=== PATIENT | male | born 1990 | race Caucasian/White ===

== ENCOUNTER 2016-12-03 00:47 | Inpatient (IN) | payer MEDICAID, OTHER ==
--- NOTE | 2016-12-03 01:06 | ED ---
General Adult HPI - General Source: patient, RN notes reviewed, old records reviewed Mode of arrival: ambulatory Limitations: no limitations <Ghassan Dwyer - Last Filed: 12/03/16 01:05> <Shaw Colon - Last Filed: 12/03/16 08:53> - General Chief complaint: Psychiatric Symptoms Stated complaint: Mental Health Time Seen by Provider: 12/03/16 00:59 - History of Present Illness Initial comments: This is a 26-year-old male the ER for eversion of psychiatric disease. Patient has positive suicidal thoughts (Ghassan Dwyer) - Related Data Home Medications Medication Instructions Recorded Confirmed FLUoxetine HCL [PROzac] 20 mg PO DAILY 12/03/16 12/03/16 Allergies Allergy/AdvReac Type Severity Reaction Status Date / Time shellfish derived Allergy Anaphylaxis Verified 12/03/16 08:30 Review of Systems ROS Other: All systems not noted in ROS Statement are negative. <Ghassan Dwyer - Last Filed: 12/03/16 01:05> ROS Other: All systems not noted in ROS Statement are negative. <Shaw Cooln - Last Filed: 12/03/16 08:53> ROS Statement: Those systems with pertinent positive or pertinent negative responses have been documented in the HPI. Past Medical History Past Medical History: No Reported History History of Any Multi-Drug Resistant Organisms: None Reported Past Surgical History: No Surgical Hx Reported Past Psychological History: Depression Smoking Status: Current every day smoker Past Alcohol Use History: Occasional Past Drug Use History: Heroin <Ghassan Dwyer - Last Filed: 12/03/16 01:05> General Exam Limitations: no limitations General appearance: alert, in no apparent distress Head exam: Present: atraumatic, normocephalic, normal inspection Eye exam: Present: normal appearance, PERRL, EOMI. Absent: scleral icterus, conjunctival injection, periorbital swelling ENT exam: Present: normal exam, mucous membranes moist Neck exam: Present: normal inspection. Absent: tenderness, meningismus, lymphadenopathy Respiratory exam: Present: normal lung sounds bilaterally. Absent: respiratory distress, wheezes, rales, rhonchi, stridor Cardiovascular Exam: Present: regular rate, normal rhythm, normal heart sounds. Absent: systolic murmur, diastolic murmur, rubs, gallop, clicks GI/Abdominal exam: Present: soft, normal bowel sounds. Absent: distended, tenderness, guarding, rebound, rigid Extremities exam: Present: normal inspection, full ROM, normal capillary refill. Absent: tenderness, pedal edema, joint swelling, calf tenderness Back exam: Present: normal inspection Neurological exam: Present: alert, oriented X3, CN II-XII intact Psychiatric exam: Present: normal affect, normal mood Skin exam: Present: warm, dry, intact, normal color. Absent: rash <Ghassan Dwyer - Last Filed: 12/03/16 01:05> Medical Decision Making <Ghassan Dwyer - Last Filed: 12/03/16 01:05> <Shaw Colon - Last Filed: 12/03/16 08:53> - Medical Decision Making Patient was seen by mental health services, who will admit. (Shaw Colon) - Lab Data Lab Results 12/03/16 Range/Units 06:44 Urine Opiates Screen Not Detected (NotDetected) Ur Oxycodone Screen Not Detected (NotDetected) Urine Methadone Screen Not Detected (NotDetected) Ur Propoxyphene Screen Not Detected (NotDetected) Ur Barbiturates Screen Not Detected (NotDetected) U Tricyclic Antidepress Not Detected (NotDetected) Ur Phencyclidine Scrn Not Detected (NotDetected) Ur Amphetamines Screen Not Detected (NotDetected) U Methamphetamines Scrn Not Detected (NotDetected) U Benzodiazepines Scrn Not Detected (NotDetected) Urine Cocaine Screen Not Detected (NotDetected) U Marijuana (THC) Screen Not Detected (NotDetected) Disposition <Ghassan Dwyer - Last Filed: 12/03/16 01:05> <Shaw Colon - Last Filed: 12/03/16 08:53> Clinical Impression: Depression, Suicidal ideation Disposition: TRANSFER TO PSYCH HOSP/UNIT
[2016-12-03] MEDS ORDERED: LORazepam 2 MG/ML SYRINGE IM STA (10:28)
[2016-12-03] MEDS ORDERED: MAGNESIUM HYDROXIDE 2,400 MG/10 ML CUP PO PRN (13:42)
[2016-12-03] MEDS ORDERED: MAG HYDROX/AL HYDROX/SIMETH 30 ML CUP PO PRN (13:42)
[2016-12-03] MEDS ORDERED: ZIPRASIDONE 20 MG VIAL IM PRN (13:42)
[2016-12-03] MEDS ORDERED: ACETAMINOPHEN TAB 325 MG TAB PO PRN (13:42)
[2016-12-03 14:13] VITALS: BMI 19.1
[2016-12-03] MEDS: LORazepam 1 MG TAB PO PRN ×2 (14:13→19:38)
[2016-12-03] MEDS: NICOTINE 21MG/24HR PATCH TRANSDERM SCH (14:13)
[2016-12-04] MEDS: NICOTINE 21MG/24HR PATCH TRANSDERM SCH (08:46)
[2016-12-04] MEDS: LORazepam 1 MG TAB PO PRN ×2 (08:46→14:49)
[2016-12-04 09:38] LABS: Basophils % (A) 0 %; Eosinophils # (A) 0.2 k/uL (0-0.7); Eosinophils % (A) 3 %; HCT 52.5 % (39.0-53.0); HDW 2.57; HGB 16.9 gm/dL (13.0-17.5); Luc # (Auto) 0.19; Luc % (Auto) 3; Lymphocytes # (A) 1.6 k/uL (1.0-4.8); Lymphocytes % (A) 24 %; MCH 30.3 pg (25.0-35.0); MCHC 32.1 g/dL (31.0-37.0); MCV 94.4 fL (80.0-100.0); Mean Platelet Volume 7.6; Monocytes # (A) 0.5 k/uL (0-1.0); Monocytes % (A) 8 %; Neutrophils # (A) 4.2 k/uL (1.3-7.7); Neutrophils % (A) 63 %; RBC 5.56 m/uL (4.30-5.90); RDW 14.7 % (11.5-15.5); WBC 6.8 k/uL (3.8-10.6); WBC (Perox) 6.73
[2016-12-04 09:51] LABS: ALT 39 U/L (21-72); AST 38 U/L (17-59); Alkaline Phosphatase 69 U/L (38-126); Anion Gap 13 mmol/L; Blood Urea Nitrogen 10 mg/dL (9-20); Calcium 10.1 mg/dL (8.4-10.2); Carbon Dioxide 26 mmol/L (22-30); Chloride 102 mmol/L (98-107); Glucose 130 mg/dL (74-99); Non-African American GFR(MDRD) >60 (>60 ml/min/1.73 sqM); Potassium 3.9 mmol/L (3.5-5.1); Sodium 141 mmol/L (137-145); Total Bilirubin 2.4 mg/dL (0.2-1.3)
[2016-12-04] MEDS ORDERED: ALBUTEROL INHALER 60 PUFF/8 GM INHALER INHALATION PRN (09:55)
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
[2016-12-04] MEDS: DIAZEPAM 5 MG TAB PO SCH ×3 (10:15→20:56)
[2016-12-04] MEDS: FLUoxetine HCL 20 MG CAP PO SCH (10:15)
[2016-12-04] MEDS: GABAPENTIN 300 MG CAP PO SCH ×3 (10:15→20:56)
--- NOTE | 2016-12-04 15:53 | P.CONS ---
History of Present Illness - Reason for Consult Consult date: 12/04/16 - Chief Complaint Suicidal Ideation - History of Present Illness This is a pleasant 26-year-old gentleman with no current PCP, he has underlying history of chemical dependency, depression, insomnia, chronic alcoholism and panic attacks admitted to the hospital secondary to increasing despondency and suicidal thoughts. 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 No physical pain, no skin injuries currently. Review of Systems Constitutional: Reports as per HPI, Denies anorexia, Denies chills, Denies chronic headaches, Denies chronic pain, Denies daytime sleepiness, Denies fatigue, Denies fever, Denies lethargy, Denies malaise, Denies night sweats, Denies poor appetite, Denies sweats, Denies weakness, Denies weight gain, Denies weight loss Ears, nose, mouth and throat: Reports as per HPI, Denies ant. neck pain, Denies bleeding gums, Denies dental pain, Denies dysphagia, Denies epistaxis, Denies headache, Denies hoarseness, Denies mouth pain, Denies nasal congestion, Denies nasal discharge, Denies neck fullness/pressure, Denies neck lump, Denies nose pain, Denies odynophagia, Denies post-nasal drip, Denies sinus pain, Denies sinus pressure, Denies swelling in mouth, Denies swelling in throat, Denies sore throat, Denies vertigo, Denies voice changes Cardiovascular: Reports as per HPI, Denies chest pain, Denies claudication, Denies decreased exercise tolerance, Denies dyspnea on exertion, Denies edema, Denies high blood pressure, Denies irregular heart beat, Denies leg edema, Denies lightheadedness, Denies orthopnea, Denies palpitations, Denies paroxysmal nocturnal dyspnea, Denies phlebitis, Denies rapid heart beat, Denies shortness of breath, Denies syncope Respiratory: Reports as per HPI, Denies congestion, Denies cough, Denies cough with sputum, Denies dyspnea, Denies excessive sputum, Denies hemoptysis, Denies home oxygen, Denies pain, Denies pain on inspiration, Denies pleurisy, Denies respiratory infections, Denies sleep apnea, Denies snoring, Denies wheezing Gastrointestinal: Reports as per HPI, Denies abdominal pain, Denies belching, Denies bloating, Denies BRBPR, Denies change in bowel habits, Denies coffee ground emesis, Denies constipation, Denies diarrhea, Denies dyspepsia, Denies early satiety, Denies excessive gas, Denies heartburn, Denies hematemesis, Denies hematochezia, Denies indigestion, Denies jaundice, Denies lactose intolerance, Denies loss of appetite, Denies melena, Denies nausea, Denies vomiting Genitourinary: Reports as per HPI, Denies decreased libido, Denies difficulties fathering child, Denies discharge, Denies dysuria, Denies erectile dysfunction, Denies flank pain, Denies genital pain, Denies genital sores, Denies hematuria, Denies impotence, Denies incontinence, Denies kidney stones, Denies nocturia, Denies polyuria, Denies testicular lump, Denies testicular pain, Denies urinary frequency, Denies urinary hesitancy, Denies urinary retention Musculoskeletal: Reports as per HPI, Denies arm numbness/tingling, Denies atrophy, Denies fractures, Denies frequent falls, Denies gait dysfunction, Denies hot joints, Denies leg numbness/tingling, Denies limitation of motion, Denies loss of height, Denies low back pain, Denies morning stiffness, Denies muscle cramps, Denies muscle weakness, Denies myalgias, Denies neck pain, Denies neck stiffness, Denies prior amputations, Denies redness of joints, Denies shooting arm pain, Denies shooting leg pain Integumentary: Reports as per HPI, Denies acne, Denies boils, Denies brittle nails, Denies change in hair/nails, Denies color changes, Denies darkening of skin, Denies depigmentation, Denies dryness, Denies foot/leg ulcers, Denies growths, Denies hirsutism, Denies lesions, Denies onychomycosis, Denies pruritus , Denies rash, Denies sores, Denies striae, Denies unusual bruising, Denies wounds Neurological: Reports as per HPI, Denies aphasia, Denies ataxia, Denies balance difficulties, Denies burning pain, Denies change in mentation, Denies change in smell/taste, Denies change in speech, Denies confusion, Denies convulsions, Denies double vision, Denies gait dysfunction, Denies head injury, Denies headaches, Denies hearing difficulties, Denies lack of coordination, Denies loss of vision, Denies memory loss, Denies migraines, Denies motor disturbance, Denies numbness, Denies paralysis, Denies paresthesias, Denies seizures, Denies sensory deficit, Denies spasticity, Denies syncope, Denies tic, Denies tingling , Denies transient paralysis, Denies tremors, Denies vertigo, Denies weakness, Denies visual changes Psychiatric: Reports as per HPI, Reports anxiety, Reports anxiety attacks, Reports depression, Reports insomnia, Reports sleep disturbances, Denies anhedonia, Denies change in appetite, Denies change in libido, Denies change in sleep habits, Denies confusion, Denies difficulty concentrating, Denies disorientation, Denies hallucinations, Denies hopelessness, Denies hypersomnia, Denies irritability, Denies memory loss, Denies mood swings, Denies paranoia, Denies sadness/tearfulness, Denies suicidal ideation Endocrine: Reports as per HPI, Denies cold intolerance, Denies deepening of the voice, Denies excessive sweating, Denies excessive thirst, Denies fatigue, Denies flushing, Denies heat intolerance, Denies high blood sugars, Denies increase in ring/shoe/hat size, Denies low blood sugars, Denies nocturia, Denies palpitations, Denies polydipsia, Denies polyphagia, Denies polyuria, Denies proptosis, Denies recent glucocorticoid use, Denies thyroid mass, Denies weight change Hematologic/Lymphatic: Reports as per HPI Allergic/Immunologic: Reports as per HPI, Denies allergic rhinitis, Denies anaphylaxis, Denies angioedema, Denies gluten intolerance, Denies persistent infections, Denies seasonal allergies, Denies urticaria, Denies wheezing Past Medical History Past Medical History: Asthma, Liver Disease Additional Past Medical History / Comment(s): Hepatitis C History of Any Multi-Drug Resistant Organisms: None Reported Past Surgical History: No Surgical Hx Reported Past Anesthesia/Blood Transfusion Reactions: No Reported Reaction Past Psychological History: Depression Smoking Status: Current every day smoker Past Alcohol Use History: Daily, Heavy Additional Past Alcohol Use History / Comment(s): Pt. reports drinking a fifth a day since leaving [place] a week ago Past Drug Use History: Cocaine, Heroin, Marijuana, Opiates - Past Family History Mother Family Medical History: No Reported History Brother(s) Family Medical History: No Reported History Sister(s) Family Medical History: No Reported History Daughter(s) Family Medical History: No Reported History (2 daughters healthy no sons) Medications and Allergies Home Medications Medication Instructions Recorded Confirmed Type FLUoxetine HCL [PROzac] 20 mg PO DAILY 12/03/16 12/03/16 History Allergies Allergy/AdvReac Type Severity Reaction Status Date / Time shellfish derived Allergy Anaphylaxis Verified 12/03/16 08:30 haloperidol [From Haldol] AdvReac Unknown Verified 12/03/16 14:31 Physical Exam Vitals: Vital Signs Temp Pulse Resp BP Pulse Ox 12/04/16 06:35 97.5 F L 83 16 133/85 12/03/16 23:14 97.7 F 61 18 105/76 97 12/03/16 13:50 97.0 F L 128 H 20 141/90 - Constitutional General appearance: cooperative, no acute distress, thin - EENT Eyes: anicteric sclerae, EOMI, PERRLA, dentition normal, normal appearance ENT: hearing grossly normal, NA/AT, normal oropharynx - Neck Neck: no lymphadenopathy, normal ROM, no other, no rigidity, no stridor, no thyromegaly - Respiratory Respiratory: bilateral: CTA, negative: diminished, dullness, rales - Cardiovascular Rhythm: regular Heart sounds: normal: S1, S2 Abnormal Heart Sounds: no systolic murmur, no diastolic murmur, no rub, no S3 Gallop, no S4 Gallop, no click, no other - Gastrointestinal General gastrointestinal: normal bowel sounds, soft - Integumentary Integumentary: normal - Neurologic Neurologic: CNII-XII intact - Musculoskeletal Musculoskeletal: gait normal, strength equal bilaterally - Psychiatric Psychiatric: A&O x's 3, appropriate affect, intact judgment & insight Results CBC & Chem 7: 12/04/16 08:59 12/04/16 08:59 Labs: Abnormal Lab Results - Last 24 Hours (Table) 12/04/16 Range/Units 08:59 Glucose 130 H (74-99) mg/dL Total Bilirubin 2.4 H (0.2-1.3) mg/dL Laboratory Results WBC 6.8 k/uL (3.8-10.6) 12/04/16 08:59 RBC 5.56 m/uL (4.30-5.90) 12/04/16 08:59 Hgb 16.9 gm/dL (13.0-17.5) 12/04/16 08:59 Hct 52.5 % (39.0-53.0) 12/04/16 08:59 MCV 94.4 fL (80.0-100.0) 12/04/16 08:59 MCH 30.3 pg (25.0-35.0) 12/04/16 08:59 MCHC 32.1 g/dL (31.0-37.0) 12/04/16 08:59 RDW 14.7 % (11.5-15.5) 12/04/16 08:59 Plt Count 205 k/uL (150-450) 12/04/16 08:59 Neutrophils % 63 % 12/04/16 08:59 Lymphocytes % 24 % 12/04/16 08:59 Monocytes % 8 % 12/04/16 08:59 Eosinophils % 3 % 12/04/16 08:59 Basophils % 0 % 12/04/16 08:59 Neutrophils # 4.2 k/uL (1.3-7.7) 12/04/16 08:59 Lymphocytes # 1.6 k/uL (1.0-4.8) 12/04/16 08:59 Monocytes # 0.5 k/uL (0-1.0) 12/04/16 08:59 Eosinophils # 0.2 k/uL (0-0.7) 12/04/16 08:59 Basophils # 0.0 k/uL (0-0.2) 12/04/16 08:59 Sodium 141 mmol/L (137-145) 12/04/16 08:59 Potassium 3.9 mmol/L (3.5-5.1) 12/04/16 08:59 Chloride 102 mmol/L (98-107) 12/04/16 08:59 Carbon Dioxide 26 mmol/L (22-30) 12/04/16 08:59 Anion Gap 13 mmol/L 12/04/16 08:59 BUN 10 mg/dL (9-20) 12/04/16 08:59 Creatinine 1.03 mg/dL (0.66-1.25) 12/04/16 08:59 Est GFR (MDRD) Af Amer >60 (>60 ml/min/1.73 sqM) 12/04/16 08:59 Est GFR (MDRD) Non-Af >60 (>60 ml/min/1.73 sqM) 12/04/16 08:59 Glucose 130 mg/dL (74-99) H 12/04/16 08:59 Calcium 10.1 mg/dL (8.4-10.2) 12/04/16 08:59 Total Bilirubin 2.4 mg/dL (0.2-1.3) H 12/04/16 08:59 AST 38 U/L (17-59) 12/04/16 08:59 ALT 39 U/L (21-72) 12/04/16 08:59 Alkaline Phosphatase 69 U/L (38-126) 12/04/16 08:59 Total Protein 8.0 g/dL (6.3-8.2) 12/04/16 08:59 Albumin 4.6 g/dL (3.5-5.0) 12/04/16 08:59 TSH 1.210 mIU/L (0.465-4.680) 12/04/16 08:59 Urine Opiates Screen Not Detected (NotDetected) 12/03/16 06:44 Ur Oxycodone Screen Not Detected (NotDetected) 12/03/16 06:44 Urine Methadone Screen Not Detected (NotDetected) 12/03/16 06:44 Ur Propoxyphene Screen Not Detected (NotDetected) 12/03/16 06:44 Ur Barbiturates Screen Not Detected (NotDetected) 12/03/16 06:44 U Tricyclic Antidepress Not Detected (NotDetected) 12/03/16 06:44 Ur Phencyclidine Scrn Not Detected (NotDetected) 12/03/16 06:44 Ur Amphetamines Screen Not Detected (NotDetected) 12/03/16 06:44 U Methamphetamines Scrn Not Detected (NotDetected) 12/03/16 06:44 U Benzodiazepines Scrn Not Detected (NotDetected) 12/03/16 06:44 Urine Cocaine Screen Not Detected (NotDetected) 12/03/16 06:44 U Marijuana (THC) Screen Not Detected (NotDetected) 12/03/16 06:44 Assessment and Plan Plan: 1. Depression with suicidality and suicidal ideation, patient had not had any current suicidal temp his last visit that temp was 5 days ago with pill overdose , patient currently is being seen by the psychiatrist in the mental health unit along with people cognitive therapy, patient is currently on Neurontin 300 mg 3 times a day for anxiety as well as Ativan 1 mg when necessary, Geodon when necessary, Valium 5 mg 3 times a day scheduled 2. Insomnia currently improved, 3. Asthma without any exacerbation 4. History of chemical dependency to include head when IV use several years ago , cocaine use and marijuana use in the past nothing active 5. Prior history of right orbital fracture requiring screw placement inactive symptoms 6. Prior history off right wrist tendon repair after tendon injury inactive symptoms 7. Current tobacco use at one pack per day, patient is on nicotine patches 21 mcg/h 8. Heavy alcohol use with 2 bottles off a fifth record per day, monitor for DTs , last alcohol intake was the day prior to this admission patient is on Ativan patient might need further detox for this one, scheduled Valium at 5 mg 3 times a day 9. Elevated liver function tests most likely secondary to chronic alcohol exposure continue to monitor no evidence of clinical jaundice at this time
[2016-12-05 06:27] VITALS: TEMP 97.6
[2016-12-05] MEDS: NICOTINE 21MG/24HR PATCH TRANSDERM SCH (08:52)
[2016-12-05] MEDS: DIAZEPAM 5 MG TAB PO SCH ×3 (08:52→20:52)
[2016-12-05] MEDS: GABAPENTIN 300 MG CAP PO SCH ×3 (08:52→20:52)
[2016-12-05] MEDS: FLUoxetine HCL 20 MG CAP PO SCH (08:52)
[2016-12-05] MEDS: LORazepam 1 MG TAB PO PRN ×3 (08:53→16:43)
--- NOTE | 2016-12-05 09:34 | P.PN ---
Progress Note - Text Interval history: The patient is found in the dining room he follows me to an interview room. He reports that his mood is better. He was able to sleep last night appetite is stable. He did speak with his mother via phone to inform her he was here. He states he has spoken with his girlfriend that he has been with for the last 2 months. He plans on staying with his girlfriend upon discharge. He feels that his withdrawal symptoms have improved. He is selectively attending groups. He voices a preference to be discharged today but we discussed that we need to appropriately assess him for safety. Mental status exam: The patient is seated calmly he is casually dressed his hairs in a ponytail. Eye contact is intermittent speech is fluent spontaneous nonpressured he reports feeling safe here in the hospital he is reporting no acute suicidal ideation, no homicidal ideation. He is endorsing no auditory or visual hallucinations no specific delusions. Insight and judgment limited. He is oriented to person place and date. No verbal or physical aggressiveness is demonstrated he demonstrates no tremulous activity. Affect is constricted with little range of expression today. Plan: The patient will continue on the Prozac and Neurontin is written. The Valium will need to be tapered down over the course of the next few days he may be appropriate for discharge Thursday or Thursday depending on his clinical progress. Vital signs reviewed. We will continue to monitor him for safety and encourage his participation in the milieu.
[2016-12-06] MEDS: LORazepam 1 MG TAB PO PRN ×4 (04:08→23:35)
[2016-12-06] MEDS: GABAPENTIN 300 MG CAP PO SCH ×3 (08:05→20:25)
[2016-12-06] MEDS: DIAZEPAM 5 MG TAB PO SCH ×2 (08:05→20:25)
[2016-12-06] MEDS: NICOTINE 21MG/24HR PATCH TRANSDERM SCH (08:05)
[2016-12-06] MEDS: FLUoxetine HCL 20 MG CAP PO SCH (08:05)
--- NOTE | 2016-12-06 12:06 | P.PN ---
Progress Note - Text Interval history: Patient is seen in cross coverage today for Dr. Moser. He reports that he is feeling better. We talked further about discharge planning for Thursday. He states that he is sleeping well. He does not verbalize any significant alcohol withdrawal symptoms. We discussed further tapering the Valium. He talks about planning on keeping her sobriety. Mental status exam: He is alert and cooperative with the interview. Speech is fluent, not rapid or pressured. Thought processes organized. His mood overall appears to be improved. He denies any thoughts of harm to self or others. No evidence of psychosis or agitation. His affect does show range. Plan: We will taper back on Valium to 5 mg twice a day. Maintain Prozac as current. He is also on Neurontin. We'll continue to monitor for any medication side effects. We'll continue to cover this patient for Dr. Moser through the weekend. Look for likely discharge planning on Thursday.
[2016-12-07] MEDS: FLUoxetine HCL 20 MG CAP PO SCH (08:03)
[2016-12-07] MEDS: DIAZEPAM 5 MG TAB PO SCH (08:03)
[2016-12-07] MEDS: NICOTINE 21MG/24HR PATCH TRANSDERM SCH (08:03)
[2016-12-07] MEDS: GABAPENTIN 300 MG CAP PO SCH ×3 (08:03→20:45)
[2016-12-07] MEDS: LORazepam 1 MG TAB PO PRN ×3 (11:14→22:00)
--- NOTE | 2016-12-07 16:18 | P.PN ---
Progress Note - Text Interval history: Patient is seen in cross coverage today for Dr. Moser. His mood is doing well. He reports that he is not having any withdrawal. He slept well last night and is eating well. He does talk about discharge. He is not verbalize any difficulties with Prozac/Neurontin. Mental status exam: He is alert and cooperative with the interview. His speech is fluent, not rapid or pressured. He denies any thoughts of harm to self or others. He denies any auditory or visual hallucinations. He does not show any agitation. His mood appears to be improved. He does show range of affect. No evidence of psychosis. Plan: We'll maintain Prozac and Neurontin as current. Continue to taper Valium to just [address] Moser resumed care this patient starting tomorrow. Will look at possible discharge planning as early as tomorrow.
[2016-12-07] MEDS ORDERED: DIAZEPAM 5 MG TAB PO SCH (21:00)
[2016-12-08 04:01] VITALS: PULSE 98; RESP 16
[2016-12-08 04:03] VITALS: BP 168/97
[2016-12-08] MEDS ORDERED: DIAZEPAM 5 MG TAB PO SCH (09:00)
== END 2016-12-08 02:16 | disposition short-term general hospital (02) | DRG 885 ==
LOC: EC 00:47 → 3MHU 13:02
PROVIDERS: ADMIT Psychiatry & Neurology Psychiatry; ATTEND Psychiatry & Neurology Psychiatry
DX: F33.2 Major depressive disorder, recurrent severe without psychotic features (principal); R45.851 Suicidal ideations; F10.280 Alcohol dependence with alcohol-induced anxiety disorder; F11.188 Opioid abuse with other opioid-induced disorder; Z91.5 Personal history of self-harm; F41.0 Panic disorder [episodic paroxysmal anxiety]; J45.909 Unspecified asthma, uncomplicated; F17.200 Nicotine dependence, unspecified, uncomplicated; G47.00 Insomnia, unspecified; F40.10 Social phobia, unspecified; B19.20 Unspecified viral hepatitis C without hepatic coma; T43.291A Poisoning by other antidepressants, accidental (unintentional), initial encounter; Z79.899 Other long term (current) drug therapy; Y92.230 Patient room in hospital as the place of occurrence of the external cause
CPT/HCPCS: 80053; 80306; 82075; 84443; 85025; 93005; 96372; 99285

== ENCOUNTER 2016-12-08 02:19 | Inpatient (IN) | payer OTHER ==
[2016-12-08] MEDS ORDERED: SODIUM CHLORIDE 0.9% 1,000 ML IV SCH (02:45)
[2016-12-08 02:59] LABS: Basophils # (A) 0.1 k/uL (0-0.2); Basophils % (A) 1 %; CH 31.5; CHCM 33.8; Eosinophils # (A) 0.2 k/uL (0-0.7); Eosinophils % (A) 2 %; HCT 47.1 % (39.0-53.0); HDW 2.69; HGB 15.5 gm/dL (13.0-17.5); Luc # (Auto) 0.21; Luc % (Auto) 2; Lymphocytes # (A) 1.7 k/uL (1.0-4.8); Lymphocytes % (A) 15 %; MCH 30.8 pg (25.0-35.0); MCV 93.3 fL (80.0-100.0); Mean Platelet Volume 8.8; Monocytes # (A) 0.8 k/uL (0-1.0); Monocytes % (A) 7 %; Neutrophils # (A) 8.4 k/uL (1.3-7.7); Neutrophils % (A) 73 %; RBC 5.04 m/uL (4.30-5.90); RDW 14.8 % (11.5-15.5); WBC 11.5 k/uL (3.8-10.6); WBC (Perox) 11.73
[2016-12-08 03:04] LABS: INR 1.1 (<1.1); Partial Thromboplastin Time 27.5 sec (22.0-30.0)
[2016-12-08 03:20] LABS: ALT 51 U/L (21-72); AST 36 U/L (17-59); Alkaline Phosphatase 59 U/L (38-126); Anion Gap 11 mmol/L; Blood Urea Nitrogen 9 mg/dL (9-20); Calcium 9.7 mg/dL (8.4-10.2); Carbon Dioxide 25 mmol/L (22-30); Chloride 105 mmol/L (98-107); Glucose 95 mg/dL (74-99); Non-African American GFR(MDRD) >60 (>60 ml/min/1.73 sqM); Potassium 3.5 mmol/L (3.5-5.1); Sodium 141 mmol/L (137-145); Total Protein 7.3 g/dL (6.3-8.2)
[2016-12-08 07:30] VITALS: RESP 20
[2016-12-08] MEDS: LORazepam 2 MG/ML SYRINGE IV PRN ×3 (07:33→22:34)
[2016-12-08 08:26] LABS: Basophils % (A) 0 %; CH 31.4; CHCM 33.6; Eosinophils # (A) 0.3 k/uL (0-0.7); Eosinophils % (A) 4 %; HCT 44.4 % (39.0-53.0); HDW 2.62; Luc # (Auto) 0.17; Luc % (Auto) 2; Lymphocytes # (A) 1.5 k/uL (1.0-4.8); Lymphocytes % (A) 20 %; MCH 31.6 pg (25.0-35.0); MCHC 33.7 g/dL (31.0-37.0); MCV 93.8 fL (80.0-100.0); Mean Platelet Volume 7.9; Monocytes # (A) 0.5 k/uL (0-1.0); Monocytes % (A) 7 %; Neutrophils # (A) 5.1 k/uL (1.3-7.7); Neutrophils % (A) 68 %; RBC 4.74 m/uL (4.30-5.90); RDW 14.9 % (11.5-15.5); WBC 7.5 k/uL (3.8-10.6); WBC (Perox) 7.36
[2016-12-08 08:47] LABS: Anion Gap 11 mmol/L; Blood Urea Nitrogen 9 mg/dL (9-20); Calcium 9.5 mg/dL (8.4-10.2); Carbon Dioxide 25 mmol/L (22-30); Chloride 105 mmol/L (98-107); Glucose 115 mg/dL (74-99); Non-African American GFR(MDRD) >60 (>60 ml/min/1.73 sqM); Potassium 3.4 mmol/L (3.5-5.1); Sodium 141 mmol/L (137-145)
[2016-12-08] MEDS ORDERED: POTASSIUM CHLORIDE ER 20 MEQ TAB.ER PO STA (11:07)
--- NOTE | 2016-12-08 11:49 | P.PN ---
Progress Note - Text Interval history: The patient is found in his room he is lying in bed awake he has a one-to-one drug safety coordinator. The patient was under my care on the mental health unit prior to his transfer to the fourth floor. The patient admits that he was snorting Wellbutrin tablets and consumed 15-20 on Thursday. He states he did this to get high and didn't realize it could cause potential harm. Apparentlly he patient appeared unstable, the a team was called, and the he was transferred to the fourth floor for continued observation. There was report from nursing that the patient attempted to leave the hospitalist morning and a petition was completed to prevent that. The patient verbalizes that he is willing to return to the mental health unit once medically cleared. He states that he had smuggled these pills in his pants however there is a fairy that his girlfriend brought him the medication during visiting on the mental health unit. Mental status exam: The patient is alert he is lying in bed he is in no acute distress. Eye contact is intermittent. Speech is spontaneous fluent nonpressured. He has a blunted affect with no change in expression. There is no psychomotor agitation. He demonstrates no verbal or physical aggressiveness. He reports feeling safe and expresses no acute suicidal ideation at this time no homicidal ideation. He reports that he was hallucinating when he consumed the Wellbutrin that those symptoms have subsided. He stated he was having nonspecific auditory hallucinations. Thought process is fairly linear there is no evidence of tangential thinking with loose associations or flight of ideas. Insight and judgment limited. Plan: The patient was being treated with Prozac and Neurontin on the mental health unit we will defer restarting the Prozac I will restart the Neurontin 300 mg 3 times daily as he has found that helpful for anxiety in the past. He does have a history of alcohol dependence we were monitoring for any alcohol withdrawal and providing Valium as needed for alcohol withdrawal symptoms. The patient has shown evidence that he is exercising poor insight and judgment and will require readmission to the mental health unit once medically cleared. I will continue following the patient.
[2016-12-08] MEDS: QUEtiapine 25 MG TAB PO SCH ×2 (11:52→22:35)
--- NOTE | 2016-12-08 14:06 | P.HPIM ---
History of Present Illness H&P Date: 12/08/16 Chief Complaint: Overdose on Wellbutrin This is a 26-year-old male who does not have a primary care physician. Patient was seen by medicine on the mental health unit on December 04. He has a past medical history of chemical dependency, depression, insomnia, chronic alcoholism and panic attacks. Patient was admitted to the mental health unit for suicidal thoughts. He apparently recently attended [facility] for chemical dependency about 2 weeks prior to this. Apparently patient had taken 15-20 Wellbutrin which he states he was snorting them all throughout the day. These apparently were taped to the inside of his hands and he was taking them one at a time. "I didn't know I could overdose on Wellbutrin." Poison control was contacted and patient was transferred to the [facility] floor as a medical admission. Patient states that his anxiety is really bad. He wants to go home. He states he was not suicidal when he took these medications. He shouldn't does not think he had any rhonchi and taking medications like this while he was on the mental health unit. Sitter is at the bedside. Consult with psychiatry in place. Review of Systems All systems: negative Constitutional: Denies chills, Denies fever Eyes: denies blurred vision, denies pain Ears, nose, mouth and throat: Denies headache, Denies sore throat Cardiovascular: Denies chest pain, Denies shortness of breath Respiratory: Denies cough Gastrointestinal: Denies abdominal pain, Denies diarrhea, Denies nausea, Denies vomiting Musculoskeletal: Denies myalgias Integumentary: Denies pruritus, Denies rash Neurological: Denies numbness, Denies weakness Psychiatric: Reports anxiety, Reports insomnia, Denies depression, Denies suicidal ideation Endocrine: Denies fatigue, Denies weight change Past Medical History Past Medical History: Asthma, Liver Disease Additional Past Medical History / Comment(s): Hepatitis C History of Any Multi-Drug Resistant Organisms: None Reported Past Surgical History: No Surgical Hx Reported Past Anesthesia/Blood Transfusion Reactions: No Reported Reaction Past Psychological History: Depression Smoking Status: Current every day smoker Past Alcohol Use History: Daily, Heavy Additional Past Alcohol Use History / Comment(s): Pt. reports drinking a fifth a day since leaving [facility] a week ago Past Drug Use History: Cocaine, Heroin, Marijuana, Opiates - Past Family History Mother Family Medical History: No Reported History Brother(s) Family Medical History: No Reported History Sister(s) Family Medical History: No Reported History Daughter(s) Family Medical History: No Reported History Medications and Allergies Home Medications Medication Instructions Recorded Confirmed Type FLUoxetine HCL [PROzac] 20 mg PO DAILY 12/03/16 12/03/16 History Allergies Allergy/AdvReac Type Severity Reaction Status Date / Time shellfish derived Allergy Anaphylaxis Verified 12/03/16 08:30 haloperidol [From Haldol] AdvReac Unknown Verified 12/03/16 14:31 Physical Exam Vitals: Vital Signs Temp Pulse Resp BP Pulse Ox 12/08/16 07:00 97.4 F L 93 20 130/77 97 12/08/16 04:31 96.7 F L 84 17 138/84 98 Intake and Output 12/07/16 12/08/16 12/08/16 22:59 06:59 14:59 Intake Total 120 Balance 120 Intake: Oral 120 Other: # Voids 0 Weight 53.5 kg Gen: This is a 26-year-old male. He is laying in the hospital bed and appears to be in no acute distress. Sitter is at the bedside. HEENT: Head is atraumatic, normocephalic. Pupils equal, round. Sclerae is anicteric. NECK: Supple. No JVD. No lymphadenopathy. No thyromegaly. LUNGS: Clear to auscultation. No wheezes or rhonchi. No intercostal retractions. HEART: Regular rate and rhythm. No murmur. ABDOMEN: Soft. Bowel sounds are present. No masses. No tenderness. EXTREMITIES: No pedal edema. No calf tenderness. NEUROLOGICAL: Patient is awake, alert and oriented x3. Cranial nerves 2 through 12 are grossly intact. Results CBC & Chem 7: 12/08/16 07:41 12/08/16 07:41 Labs: Abnormal Lab Results - Last 24 Hours (Table) 12/08/16 12/08/16 12/08/16 Range/Units 02:15 07:41 07:41 WBC 11.5 H (3.8-10.6) k/uL Plt Count 121 L (150-450) k/uL Neutrophils # 8.4 H (1.3-7.7) k/uL Potassium 3.4 L (3.5-5.1) mmol/L Glucose 115 H (74-99) mg/dL Thrombosis Risk Factor Assmnt - DVT/VTE Prophylaxis DVT/VTE Prophylaxis: Mechanical Prophylaxis ordered - Choose All That Apply Any of the Below Risk Factors Present?: No Other Risk Factors: No Other congenital or acquired thrombophilia - If yes, enter type in comment: No Thrombosis Risk Factor Assessment Level: Very Low Risk Assessment and Plan Plan: 1. Overdose with Wellbutrin 300 mg 15-20 tablets yesterday while on the mental health unit. Poison control was contacted and Ativan was recommended due to potential for seizure. Seroquel added. He has been on IV fluids which will be discontinued and changed to saline lock. Consult in place with psychiatry. Sitter is at the bedside. 2. Depression with suicidal ideation with recent admission on December 04 mental health unit. Consult with psychiatry. Patient is been started on Neurontin and continued on Ativan and Seroquel. 2. Insomnia currently improved, 3. Asthma without any exacerbation 4. History of chemical dependency to include heroin IV use several years ago, cocaine use and marijuana use in the past nothing active 5. Prior history of right orbital fracture requiring screw placement inactive symptoms 6. Prior history of right wrist tendon repair after tendon injury inactive symptoms 7. Current tobacco use at one pack per day, patient is on nicotine patche 8. Heavy alcohol use with 2 fifth per day 9. Elevated liver function tests most likely secondary to chronic alcohol exposure which have normalized Discharge plan: Most likely return to mental health unit. Psychiatry consult in place. Patient will be admitted for a minimum of 2 night stay. Impression and plan of care have been directed as dictated by the signing physician. Jade Sarah nurse practitioner acting as scribe for signing physician. Time with Patient: Greater than 30
[2016-12-08] MEDS: NICOTINE 21MG/24HR PATCH TRANSDERM SCH (14:17)
[2016-12-08] MEDS: GABAPENTIN 300 MG CAP PO SCH ×2 (16:00→22:35)
[2016-12-09 07:53] VITALS: BP 140/79; PULSE 75; TEMP 97.3
[2016-12-09] MEDS: NICOTINE 21MG/24HR PATCH TRANSDERM SCH (09:21)
[2016-12-09] MEDS: QUEtiapine 25 MG TAB PO SCH (09:21)
[2016-12-09] MEDS: GABAPENTIN 300 MG CAP PO SCH (09:21)
[2016-12-09 09:23] LABS: Basophils % (A) 0 %; CH 31.3; CHCM 32.4; Eosinophils # (A) 0.2 k/uL (0-0.7); Eosinophils % (A) 4 %; HDW 2.53; HGB 15.1 gm/dL (13.0-17.5); Luc # (Auto) 0.18; Luc % (Auto) 3; Lymphocytes # (A) 1.7 k/uL (1.0-4.8); Lymphocytes % (A) 25 %; MCH 30.5 pg (25.0-35.0); MCHC 31.4 g/dL (31.0-37.0); Mean Platelet Volume 8.3; Monocytes # (A) 0.7 k/uL (0-1.0); Monocytes % (A) 10 %; Neutrophils # (A) 3.9 k/uL (1.3-7.7); Neutrophils % (A) 59 %; RBC 4.95 m/uL (4.30-5.90); RDW 14.9 % (11.5-15.5); WBC 6.6 k/uL (3.8-10.6); WBC (Perox) 6.62
[2016-12-09 10:28] LABS: ALT 43 U/L (21-72); AST 26 U/L (17-59); Alkaline Phosphatase 49 U/L (38-126); Anion Gap 9 mmol/L; Blood Urea Nitrogen 12 mg/dL (9-20); Calcium 9.5 mg/dL (8.4-10.2); Carbon Dioxide 24 mmol/L (22-30); Chloride 109 mmol/L (98-107); Glucose 124 mg/dL (74-99); Non-African American GFR(MDRD) >60 (>60 ml/min/1.73 sqM); Potassium 4.2 mmol/L (3.5-5.1); Sodium 142 mmol/L (137-145); Total Bilirubin 0.8 mg/dL (0.2-1.3); Total Protein 6.9 g/dL (6.3-8.2)
[2016-12-09] MEDS ORDERED: DIAZEPAM 5 MG TAB PO PRN (11:28)
[2016-12-09] MEDS ORDERED: FLUoxetine HCL 20 MG CAP PO SCH (11:30)
--- NOTE | 2016-12-09 11:33 | P.PN ---
Progress Note - Text Interval history: The patient is found in his room he is seated upright on his bed. He continues to have a health and safety specialist at bedside. Nursing staff report that the patient's been more irritable. He has refused the Seroquel dosing written by Dr. Gilbert. The patient is willing to sign in voluntarily back to the mental health unit and we are awaiting an open bed. We discussed restarting the Prozac continuing the Neurontin we will discontinue Ativan and reinitiate Valium as needed. Mental status exam: The patient is alert eye contact is minimal he seated upright in bed dressed in hospital gowns. Speech is spontaneous fluent nonpressured. He is reporting no acute suicidal ideation or homicidal ideation. Is endorsing no specific delusions. Responses to questions are brief thought process appears linear. He demonstrates no verbal or physical aggressiveness but does have increased psychomotor activity while seated. He demonstrates no verbal or physical aggressiveness. No abnormal involuntary movements. Plan: The patient will be restarted on Prozac 20 mg daily, Valium 5 mg up to 3 times daily as needed, discontinue Ativan and Seroquel. We will continue the Neurontin as written. It appears he is medically clear and he is appropriate for transfer to the mental health unit today once a bed becomes open. Continue one-to-one sitter until transferred mental health unit.
--- NOTE | 2016-12-09 12:17 | P.DS ---
Providers Date of admission: 12/08/16 02:22 Expected date of discharge: 12/09/16 Attending physician: Raz Gilbert Consults: 12/08/16 11:06 Consult Physician Routine Consulting Provider: Jack Moser Reason/Comments: MHU return Do you want consulting provider notified?: Yes Primary care physician: Stated None Hospital Course: This is a 26-year-old male who does not have a primary care physician. Patient was seen by medicine on the mental health unit on December 04. He has a past medical history of chemical dependency, depression, insomnia, chronic alcoholism and panic attacks. Patient was admitted to the mental health unit for suicidal thoughts. He apparently recently attended [facility] for chemical dependency about 2 weeks prior to this. Apparently patient had taken 15-20 Wellbutrin which he states he was snorting them all throughout the day. These apparently were taped to the inside of his hands and he was taking them one at a time. "I didn't know I could overdose on Wellbutrin." Poison control was contacted and patient was transferred to the [facility] as a medical admission. Patient states that his anxiety is really bad. He wants to go home. He states he was not suicidal when he took these medications. He shouldn't does not think he had any rhonchi and taking medications like this while he was on the mental health unit. Sitter is at the bedside. Consult with psychiatry in place. 12/09: Patient seen by Dr. Moser with recommendations to go back to the mental health unit. Patient has been uncooperative for the nursing staff. His been given Ativan as needed. Cleared for discharge the mental health unit. Discharge diagnoses: 1. Overdose with Wellbutrin 300 mg 15-20 tablets yesterday while on the mental health unit. 2. Depression with suicidal ideation with recent admission on December 04 2 mental health unit. 2. Insomnia. 3. Asthma without any exacerbation 4. History of chemical dependency to include heroin IV use several years ago, cocaine use and marijuana use in the past nothing active 5. Prior history of right orbital fracture requiring screw placement inactive symptoms 6. Prior history of right wrist tendon repair after tendon injury inactive symptoms 7. Current tobacco use at one pack per day, patient is on nicotine patche 8. Heavy alcohol use with 2 fifth per day 9. Elevated liver function tests most likely secondary to chronic alcohol exposure which have normalized Discharge plan: Transfer to the mental health unit The above impression and plan of care have been discussed and directed by signing physician. Pham Garcia nurse practitioner acting as scribe for signing physician. Patient Condition at Discharge: Good Plan - Discharge Summary Discharge Medication List Gabapentin [Neurontin] 300 mg PO TID cap 12/09/16 [Rx] Nicotine 21Mg/24Hr Patch [Habitrol] 1 patch TRANSDERM DAILY patch 12/09/16 [Rx] QUEtiapine [SEROquel] 25 mg PO BID tab 12/09/16 [Rx] Patient Instructions/Handouts: Depression (DC) Activity/Diet/Wound Care/Special Instructions: Take medications as prescribed. No illegal drug use. Regular diet. Smoking cessation information given. Discharge Disposition: TRANSFER TO PSYCH HOSP/UNIT
== END 2016-12-09 13:26 | DRG 918 ==
LOC: 4MS4W 02:22
PROVIDERS: ADMIT Internal Medicine Geriatric Medicine; ATTEND Internal Medicine Geriatric Medicine
DX: T43.291A Poisoning by other antidepressants, accidental (unintentional), initial encounter (principal); F32.9 Major depressive disorder, single episode, unspecified; F17.200 Nicotine dependence, unspecified, uncomplicated; F41.0 Panic disorder [episodic paroxysmal anxiety]; G47.00 Insomnia, unspecified; J45.909 Unspecified asthma, uncomplicated; F10.20 Alcohol dependence, uncomplicated; R79.89 Other specified abnormal findings of blood chemistry; F41.9 Anxiety disorder, unspecified; Z79.899 Other long term (current) drug therapy; Z88.8 Allergy status to other drugs, medicaments and biological substances; Y92.239 Unspecified place in hospital as the place of occurrence of the external cause
CPT/HCPCS: 80048; 80053; 85025; 85610; 85730; 93005

== ENCOUNTER 2016-12-09 12:37 | Inpatient (IN) | payer MEDICAID ==
[2016-12-09] MEDS ORDERED: ACETAMINOPHEN TAB 325 MG TAB PO PRN (13:13)
[2016-12-09] MEDS ORDERED: MAGNESIUM HYDROXIDE 2,400 MG/10 ML CUP PO PRN (13:13)
[2016-12-09] MEDS ORDERED: ZIPRASIDONE 20 MG VIAL IM PRN (13:13)
[2016-12-09] MEDS ORDERED: MAG HYDROX/AL HYDROX/SIMETH 30 ML CUP PO PRN (13:13)
[2016-12-09] MEDS: DIAZEPAM 5 MG TAB PO PRN ×2 (14:15→22:09)
[2016-12-09] MEDS: GABAPENTIN 300 MG CAP PO SCH ×2 (16:33→22:07)
[2016-12-10] MEDS: ALBUTEROL INHALER 60 PUFF/8 GM INHALER INHALATION SCH ×4 (00:28→13:09)
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
[2016-12-10] MEDS: NICOTINE 14MG/24HR PATCH TRANSDERM SCH (10:00)
[2016-12-10] MEDS: FLUoxetine HCL 20 MG CAP PO SCH (10:00)
[2016-12-10] MEDS: GABAPENTIN 300 MG CAP PO SCH ×3 (10:00→20:34)
[2016-12-10] MEDS: DIAZEPAM 5 MG TAB PO PRN ×2 (10:02→20:34)
--- NOTE | 2016-12-10 13:37 | P.CONS ---
History of Present Illness - Reason for Consult Consult date: 12/10/16 Medical management - History of Present Illness This is a 26-year-old male who does not have a primary care physician. Patient was initially seen by medicine on the mental health unit on December 04. He has a past medical history of chemical dependency, depression, insomnia, chronic alcoholism and panic attacks. Patient was admitted to the mental health unit for suicidal thoughts. He recently attended [facility] for chemical dependency about 2 weeks prior to this. On December 08, patient was transferred to the [facility] floor because he had taken 15-20 Wellbutrin which he states he was snorting them throughout the day. Wellbutrin was apparently taped to the inside of his pants and he was taking them one at a time. "I didn' t know I could overdose on Wellbutrin." Poison control was contacted and patient was transferred to the [facility] floor as a medical admission. He was then cleared for discharge from the medical floor and Dr. Moser had recommended that patient return to the mental health unit where he is now. Review of Systems All systems: negative Constitutional: Denies chills, Denies fever Eyes: denies blurred vision, denies pain Ears, nose, mouth and throat: Denies headache, Denies sore throat Cardiovascular: Denies chest pain, Denies shortness of breath Respiratory: Denies cough Gastrointestinal: Denies abdominal pain, Denies diarrhea, Denies nausea, Denies vomiting Musculoskeletal: Denies myalgias Integumentary: Denies pruritus, Denies rash Neurological: Denies numbness, Denies weakness Psychiatric: Denies anxiety, Denies depression Endocrine: Denies fatigue, Denies weight change Past Medical History Past Medical History: Asthma, Liver Disease Additional Past Medical History / Comment(s): Hepatitis C History of Any Multi-Drug Resistant Organisms: None Reported Past Surgical History: No Surgical Hx Reported Past Anesthesia/Blood Transfusion Reactions: No Reported Reaction Past Psychological History: Depression Smoking Status: Current every day smoker Past Alcohol Use History: Daily, Heavy Additional Past Alcohol Use History / Comment(s): Pt. reports drinking a fifth a day since leaving [facility] a week ago Past Drug Use History: Cocaine, Heroin, Marijuana, Opiates - Past Family History Mother Family Medical History: No Reported History Brother(s) Family Medical History: No Reported History Sister(s) Family Medical History: No Reported History Daughter(s) Family Medical History: No Reported History Medications and Allergies Allergies Allergy/AdvReac Type Severity Reaction Status Date / Time shellfish derived Allergy Anaphylaxis Verified 12/10/16 00:54 haloperidol [From Haldol] AdvReac Unknown Verified 12/10/16 00:54 Physical Exam Vitals: Vital Signs Temp Pulse Resp BP 12/10/16 07:16 97.3 F L 63 18 124/67 Intake and Output 12/09/16 12/10/16 12/10/16 22:59 06:59 14:59 Other: Weight 58 kg Gen: This is a 26-year-old male in no acute distress. HEENT: Head is atraumatic, normocephalic. Pupils equal, round. Sclerae is anicteric. NECK: Supple. No JVD. No lymphadenopathy. No thyromegaly. LUNGS: Clear to auscultation. No wheezes or rhonchi. No intercostal retractions. HEART: Regular rate and rhythm. No murmur. ABDOMEN: Soft. Bowel sounds are present. No masses. No tenderness. EXTREMITIES: No pedal edema. No calf tenderness. NEUROLOGICAL: Patient is awake, alert and oriented x3. Cranial nerves 2 through 12 are grossly intact. Assessment and Plan Plan: 1. Depression with suicidal ideation with recent admission on December 04 with return to the mental health unit. Continue current plan of care 2. Overdose with Wellbutrin 300 mg 15-20 tablets yesterday while on the mental health unit. Medically stable. 2. Insomnia 3. Asthma, not requiring medication prior to admission, no exacerbation. Ventolin inhaler as needed 4. History of chemical dependency to include heroin IV use several years ago, cocaine use and marijuana use in the past nothing active 5. Prior history of right orbital fracture requiring screw placement inactive symptoms 6. Prior history of right wrist tendon repair after tendon injury inactive symptoms 7. Current tobacco use at one pack per day, patient is on nicotine patche 8. Heavy alcohol use with 2 fifth per day 9. Elevated liver function tests most likely secondary to chronic alcohol exposure which have normalized Impression and plan of care have been directed as dictated by the signing physician. Jade Sarah nurse practitioner acting as scribe for signing physician.
[2016-12-11 06:54] VITALS: RESP 16
[2016-12-11] MEDS: ALBUTEROL INHALER 60 PUFF/8 GM INHALER INHALATION SCH ×4 (09:11→20:35)
[2016-12-11] MEDS: NICOTINE 14MG/24HR PATCH TRANSDERM SCH (09:16)
[2016-12-11] MEDS: FLUoxetine HCL 20 MG CAP PO SCH (09:16)
[2016-12-11] MEDS: GABAPENTIN 300 MG CAP PO SCH (09:16)
--- NOTE | 2016-12-11 11:03 | P.PN ---
Progress Note - Text Interval history: The patient is found in group he follows me to an interview room. He reports that his mood is "good". He states he has been attending groups appetite stable sleep has been stable. He states he had a good conversation with his mother via phone last night. We discussed his current medications we will titrate the Prozac to 40 mg daily and the Neurontin to 400 mg 3 times daily. He reports he does not need the Valium at this time. Staff report that the patient has been cooperative and has demonstrated no agitated behavior. Mental status exam: The patient is alert he is dressed in his own clothing hygiene is adequate. Speech is fluent spontaneous nonpressured. He reports his mood is good affect is congruent. He is reporting no suicidal or homicidal ideation intent or plan. There is no report or evidence of psychosis. He does not appear hypomanic or manic. He demonstrates no verbal or physical aggressiveness. He remains oriented. Plan: The patient will continue on his current medications however we will titrate the Prozac to 40 mg daily, and increase Neurontin to 400 mg 3 times daily. I anticipate discharging him tomorrow if he demonstrates continued clinical stability/improvement over the next 24 hours. He continues to not want to participate again in inpatient chemical dependency treatment. We discussed short-term goals upon discharge. We'll continue to monitor him for safety.
[2016-12-11] MEDS: DIAZEPAM 5 MG TAB PO PRN (13:40)
[2016-12-11] MEDS: GABAPENTIN 400 MG CAP PO SCH ×2 (16:16→20:19)
[2016-12-12] MEDS: ALBUTEROL INHALER 60 PUFF/8 GM INHALER INHALATION SCH ×2 (05:31→09:36)
[2016-12-12 06:58] VITALS: BP 104/60; PULSE 51; TEMP 97.4
[2016-12-12] MEDS: NICOTINE 14MG/24HR PATCH TRANSDERM SCH ×2 (08:32→10:34)
[2016-12-12] MEDS: GABAPENTIN 400 MG CAP PO SCH (08:32)
--- NOTE | 2016-12-12 08:50 | P.DS ---
Providers Date of admission: 12/09/16 13:25 Expected date of discharge: 12/12/16 Attending physician: Jack Moser Consults: 12/09/16 13:13 Consult Physician Routine Consulting Provider: Raz Gilbert Reason/Comments: follow up H&P Do you want consulting provider notified?: Yes Primary care physician: Raz Gilbert - Discharge Diagnosis(es) (1) Major depressive disorder, recurrent Current Visit: Yes Status: Acute Priority: High (2) Anxiety Current Visit: Yes Status: Acute Priority: Medium (3) Opiate dependence Current Visit: Yes Status: Acute Priority: High (4) Alcohol use disorder Current Visit: Yes Status: Acute Priority: High Hospital Course: Brief summary of admission note: This patient is a 26-year-old single male who was originally admitted to the mental health unit for worsening symptoms of depression. He reported having sad mood low energy decrease appetite impaired sleep. This was occurring in the context of ongoing heroin use and excessive use of alcohol. For full details please refer to my psychiatric evaluation dated 12/10/2016. Summary of hospital course: The patient was originally admitted to the hospital for the above-noted symptoms. He was stabilizing and then over this past weekend a visitor brought him Wellbutrin tablets that he crushed and snorted. It was estimated to be 15-20 tablets over the course of the day. He was found to be autonomically in stable and was transferred to a medical unit. He was stabilized no seizure occurred and transferred back to the mental health unit. The patient insisted that it was not an attempt to end his life but he just wanted to "get high". We readmitted the patient to further observe him for safety. While on the mental health unit the patient able to meet his own activities of daily living, he has expressed no suicidal or homicidal ideation. He is demonstrated no aggressive behavior. He does lack insight into his need for continued aggressive treatment for chemical dependency reasons. He was recently discharged from inpatient chemical past treatment and does not wish to return. During the course of his stay he was started back on his Prozac we titrated the dose of this medication to 40 mg daily he was restarted on Neurontin and titrated to 100 mg 3 times a day. Upon initial admission we were using Valium to event alcohol withdrawal symptoms as he reported previous excessive alcohol use. Mental status exam: The patient is a male appearing his stated age hygiene grooming are adequate he is dressed in his own clothing. Speech is fluent spontaneous nonpressured. He reports his mood is good. Affect is congruent and euthymic appearing. He reports no hopelessness thinking no suicidal or homicidal ideation intent or plan. He endorses no auditory or visual hallucinations he endorses no specific delusions there is no evidence of psychosis. He does not appear hypomanic or manic. He remains oriented to person place and date. He demonstrates no verbal or physical aggressiveness. Insight and judgment are grossly intact. Impressions 1. Major depressive disorder recurrent severe without psychosis, anxiety and specified, opiate use disorder, alcohol use disorder 2. History of right orbit fracture with no active issues, self-reported hepatitis C 3. Psychosocial dysfunction secondary to ongoing substance use Plan: The patient will be discharged mental health unit today he plans to reside with his girlfriend. He will continue on Prozac 40 mg daily Neurontin 400 mg 3 times daily. Social work will arrange outpatient mental health follow- up. He does not wish to participate in inpatient chemical dependency treatment but is willing to discuss his substance use issues with his outpatient clinician. The patient is voicing no suicidal or homicidal ideation there is no evidence of psychosis he is able to participate in his own activities of daily living. We discussed that any further use of substances would elevate his safety risk and he is instructed to abstain from alcohol marijuana or any other illicit drug. He is reporting no access to firearms upon discharge. He is instructed to return to the hospital with any acute safety concerns. Patient Condition at Discharge: Stable Plan - Discharge Summary New Discharge Prescriptions: FLUoxetine HCL [PROzac] 40 mg PO DAILY #30 cap Gabapentin [Neurontin] 400 mg PO TID #45 cap Nicotine 14Mg/24Hr Patch [Habitrol] 1 patch TRANSDERM DAILY #12 patch Discharge Medication List Nicotine 21Mg/24Hr Patch [Habitrol] 1 patch TRANSDERM DAILY patch 12/09/16 [Rx] FLUoxetine HCL [PROzac] 40 mg PO DAILY #30 cap 12/12/16 [Rx] Gabapentin [Neurontin] 400 mg PO TID #45 cap 12/12/16 [Rx] Nicotine 14Mg/24Hr Patch [Habitrol] 1 patch TRANSDERM DAILY #12 patch 12/12/16 [ Rx]
[2016-12-12] MEDS ORDERED: FLUoxetine HCL 20 MG CAP PO SCH (09:00)
== END 2016-12-12 11:24 | disposition home or self-care (01) | DRG 885 ==
LOC: 3MHU 13:25
PROVIDERS: ADMIT Psychiatry & Neurology Psychiatry; ATTEND Psychiatry & Neurology Psychiatry
DX: F33.2 Major depressive disorder, recurrent severe without psychotic features (principal); F11.20 Opioid dependence, uncomplicated; R45.851 Suicidal ideations; F10.239 Alcohol dependence with withdrawal, unspecified; F17.200 Nicotine dependence, unspecified, uncomplicated; F41.0 Panic disorder [episodic paroxysmal anxiety]; J45.909 Unspecified asthma, uncomplicated; Z79.899 Other long term (current) drug therapy; Z91.5 Personal history of self-harm; F59 Unspecified behavioral syndromes associated with physiological disturbances and physical factors